=== PATIENT | female | born 1935 | race Caucasian/White ===

== ENCOUNTER 2016-09-22 01:11 | Emergency (ER) | payer OTHER ==
[2016-09-22] MEDS ORDERED: ONDANSETRON 4 MG/2 ML VIAL ONE (01:22)
[2016-09-22] MEDS ORDERED: LET GEL TOPICAL 1 EA SYR TP ONE ×2 (01:34→01:43)
[2016-09-22] MEDS ORDERED: ONDANSETRON 4 MG/2 ML VIAL IVP ONE (01:37)
--- NOTE | 2016-09-22 01:37 | EDPHY ---
H & P HPI/ROS: Chief Complaint: Fall, head laceration HPI: 81-year-old woman who lives independently in her own home woke this morning needing to urgently go to the bathroom. In her haste to the bathroom she tripped and fell and struck her forehead. She is uncertain if she had a loss of consciousness but does not believe she did. She did sustain a laceration. No nausea or vomiting. No neck pain. No numbness or tingling. No confusion. No recent illness. She has a history of hypertension. Is not on any blood thinning medications. ROS: 10 point Review of Systems is negative except as noted in the HPI. PMH: Hypertension Social History: No smoking, no alcohol, no recreational drug use Family History: non-contributory Physical Exam: Gen: Awake, Alert, No Distress HEENT: 3 cm horizontal laceration above her right eye Nose: no rhinorrhea Eyes: PERRLA, EOMI Mouth: Moist mucosa Neck: Supple, no JVD Chest: nontender, lungs clear to auscultation Heart: S1, S2 normal, no murmur Abd: Soft, non-tender, no guarding Back: no CVA tenderness, no midline tenderness Ext: no edema, non-tender Skin: no rash Neuro: CN II-XII intact, Sensation grossly intact, Strength 5/5 in bilateral upper and lower extremities Constitutional: Initial Vital Signs Temperature (C) 36.8 C 09/22/16 01:11 Heart Rate 65 09/22/16 01:11 Respiratory Rate 14 09/22/16 01:11 Blood Pressure 155/98 H 09/22/16 01:11 O2 Sat (%) 95 09/22/16 01:11 O2 Delivery Mode Room Air Allergies/Adverse Reactions: No Known Allergies Allergy (Unverified 09/22/16 01:41) Home Medications: Medication Instructions Recorded Amlodipine Besylate [Norvasc] 5 mg PO 09/22/16 Aspirin [Aspirin 81mg (*)] 09/22/16 Citalopram [CeleXA 20 MG] 09/22/16 Lisinopril [Zestril 5 mg (*)] 5 mg PO DAILY 09/22/16 Simvastatin 20 mg PO 09/22/16 Medical Decision Making - Diagnostics Imaging Results: CT scan of the head and cervical spine are negative for acute injury. Interpreted by Dr. Mcneil. Imaging: Discussed imaging studies w/ call center analyst Radiologist Procedures: Procedure: Laceration repair. Verbal consent was obtained from the patient. The 2 cm laceration on the forehead was anesthetized in the usual fashion. The wound was irrigated, draped and explored to its base with a gloved finger. There were no deep structures involved. No tendon injury was identified. The wound was repaired with a layered closure, 3 5-0 Vicryl horizontal mattress sutures of the deep tissue followed by 5, 6-0 Ethilon simple interrupted sutures to close the skin. The wound repair was complicated later closure the face. The procedure was performed by myself. ED Course/Re-evaluation: Patient is up and ambulating without difficulty. She has no headache. No nausea or vomiting. He is steady on her feet was without complaint. Will discharge home with follow-up with her doctor at [place] for suture removal in 5 days. She has been given head injury instructions. - Data Points Medications Given: Discontinued Medications Ondansetron HCl (Zofran) 4 mg IVP EDNOW ONE Stop: 09/22/16 01:38 Last Admin: 09/22/16 01:43 Dose: 4 mg Tetracaine/Epinephrine/Lidocaine (Let Gel Topical) 1 ea TP EDNOW ONE Stop: 09/22/16 01:44 Last Admin: 09/22/16 01:43 Dose: 1 ea Departure - Departure Disposition: Home, Routine, Self-Care Clinical Impression: Laceration, Head injury Condition: Good Instructions: Head Injury (ED), Facial Laceration (ED), Care For Your Stitches (ED) Additional Instructions: Follow up with her doctor at [place] in 5 days for suture removal. Return emergency depart for increasing headache, confusion, nausea, vomiting, fevers, chills, or any other concerns. Referrals: Patient,NotPresent [Unknown] - As per Instructions
[2016-09-22 01:43] VITALS: TEMP 98.2
[2016-09-22 02:48] VITALS: BP 168/77
[2016-09-22 03:36] VITALS: PULSE 75; RESP 18; O2SAT 96
== END 2016-09-22 03:36 | disposition home or self-care (01) ==
LOC: EDUNIT#
PROC: 0HQ1XZZ Repair Face Skin, External Approach (ICD-10-PCS; principal; 2016-09-22)
DX: S01.81XA Laceration without foreign body of other part of head, initial encounter (principal); I10 Essential (primary) hypertension; Z79.82 Long term (current) use of aspirin; W01.198A Fall on same level from slipping, tripping and stumbling with subsequent striking against other object, initial encounter; Y92.002 Bathroom of unspecified non-institutional (private) residence as the place of occurrence of the external cause
CPT/HCPCS: 12011; 70450; 72125; 96374; 99285; J2405